=== PATIENT | male | born 1960 | race Caucasian/White ===

== ENCOUNTER 2016-10-11 23:15 | Emergency (ER) | payer SELFPAY ==
[~2016-10-11] VITALS: Ht 177.8 cm; Wt 67.7 kg
[2016-10-11 23:20] VITALS: BP 154/86
[2016-10-11] MEDS ORDERED: SULFAMETH./TRIMETHOPRIM DS 800MG/160MG TABLET ONE (23:40)
[2016-10-11] MEDS ORDERED: LIDOCAINE 1%, 20ML ONE (23:40)
[2016-10-12] MEDS ORDERED: SULFAMETH./TRIMETHOPRIM DS 800MG/160MG TABLET PO ONE
[2016-10-12] MEDS ORDERED: LIDOCAINE 1%, 10ML INFIL ONE
== END 2016-10-12 00:19 | disposition home or self-care (01) ==
LOC: ED 23:59
DX: L03.113 Cellulitis of right upper limb (principal); L02.413 Cutaneous abscess of right upper limb
CPT/HCPCS: 10060

== ENCOUNTER 2020-10-11 11:52 | Emergency (ER) | payer OTHER ==
[~2020-10-11] VITALS: Ht 177.8 cm; Wt 71.4 kg
--- NOTE | 2020-10-11 14:37 | NUR ---
"I HAVE A HERNIA ON MY R GROIN FOR THE PAST TWO YEARS, BUT ITS GOTTEN SUPER PAINFUL IN THE LAST WEEK." Able to reduce manually. no bowel or bladder difficulties
--- NOTE | 2020-10-11 14:44 | NUR ---
bedside report from braden rn, pt care transferred at this time. pt in nad. Patient is resting comfortably in bed. Bed in lowest, rails engaged, call light on lap. Awaiting orders. WCTM.
--- NOTE | 2020-10-11 14:47 | NUR ---
report to elsie diaz
[2020-10-11 16:01] VITALS: BP 163/98
--- NOTE | 2020-10-11 16:02 | NUR ---
Patient given discharge instructions and they have confirmed that they understand the instructions. Patient ambulatory with steady gait. NAD, all questions answered appropriately, denies additional needs at this time. No personal belongings left in room after discharge.
== END 2020-10-11 16:03 | disposition home or self-care (01) ==
LOC: ED 15:45
DX: K40.90 Unilateral inguinal hernia, without obstruction or gangrene, not specified as recurrent (principal)
CPT/HCPCS: 99281

== ENCOUNTER 2020-11-09 06:09 | Day surgery (SDC) | payer OTHER ==
[~2020-11-09] VITALS: Ht 177.8 cm; Wt 70.0 kg
[2020-11-09] MEDS ORDERED: BUPIVACAINE/PF 0.5% ONE (07:05)
[2020-11-09] MEDS ORDERED: EPINEPHRINE 1 MG/ML, 1ML ONE (07:05)
[2020-11-09 07:38] VITALS: BP 154/92
[2020-11-09 07:52] VITALS: BP 154/92
[2020-11-09] MEDS ORDERED: LACTATED RINGERS 1,000 ML IV SCH (08:00)
[2020-11-09] MEDS ORDERED: CHLORHEXIDINE 15 ML UDC PO ONE (08:00)
[2020-11-09] MEDS ORDERED: FENTANYL PF 250 MCG/5ML ONE (09:44)
[2020-11-09] MEDS ORDERED: ONDANSETRON 2MG/ML, 2ML ONE (10:50)
[2020-11-09] MEDS ORDERED: ROCURONIUM 10MG/ML,5ML ONE (10:50)
[2020-11-09] MEDS ORDERED: CEFAZOLIN 1,000 MG ONE (10:50)
[2020-11-09] MEDS ORDERED: PROPOFOL 10 MG/ML, 20ML ONE (10:50)
[2020-11-09] MEDS ORDERED: SUCCINYLCHOLINE 20 MG/ML, 10ML ONE (10:50)
[2020-11-09] MEDS ORDERED: GLYCOPYRROLATE 0.2MG/1ML, 5ML ONE (10:50)
[2020-11-09] MEDS ORDERED: NEOSTIGMINE 1 MG/ML, 10ML ONE (10:50)
[2020-11-09] MEDS ORDERED: DEXAMETHASONE 4 MG/ML, 1ML ONE (10:50)
[2020-11-09] MEDS ORDERED: IBUP-1223 PO (11:03)
[2020-11-09] MEDS ORDERED: ACET-1600 PO (11:03)
[2020-11-09] MEDS ORDERED: OXYC5TAB2 PO (11:03)
[2020-11-09] MEDS ORDERED: METHOCARBAMOL 1000MG/10 ML IV STA (11:04)
[2020-11-09] MEDS ORDERED: hydrALAzine 20 MG/ML, 1ML ONE (11:13)
[2020-11-09] MEDS ORDERED: PROMETHAZINE 25 MG/ML, 1ML IVPush PRN (11:30)
[2020-11-09] MEDS ORDERED: OXYcodone 5 MG/5 ML ORAL.SOL UDC PO PRN (11:30)
[2020-11-09] MEDS ORDERED: hydrALAzine 20 MG/ML, 1ML IV PRN (11:30)
[2020-11-09] MEDS ORDERED: ONDANSETRON 2MG/ML, 2ML IVPush PRN (11:30)
[2020-11-09] MEDS ORDERED: HYDROmorphone 1 MG/ML, 1ML INJ IVPush PRN (11:30)
[2020-11-09] MEDS ORDERED: FENTANYL PF 100 MCG/2ML IV PRN (11:30)
[2020-11-09] MEDS ORDERED: MEPERIDINE/PF 25MG/0.5ML IVPush PRN (11:30)
[2020-11-09] MEDS ORDERED: ACETAMINOPHEN 325 MG TABLET PO PRN (11:30)
[2020-11-09] MEDS ORDERED: LABETALOL 5MG/ML, 20ML IV PRN (11:30)
[2020-11-09] MEDS ORDERED: ACETAMINOPHEN 650 MG/20.3 ML UDC ONE (11:52)
[2020-11-09] MEDS ORDERED: OXYcodone 5 MG/5 ML ORAL.SOL UDC ONE ×2 (11:52→11:54)
[2020-11-09] MEDS ORDERED: FENTANYL PF 100 MCG/2ML ONE (11:54)
[2020-11-09] MEDS ORDERED: METHOCARBAMOL 1,000 MG in DEXTROSE 5% 100 ML IV STA (12:49)
== END 2020-11-09 14:35 | disposition home or self-care (01) ==
LOC: OUT 06:09
PROVIDERS: ATTEND Surgery
DX: K40.90 Unilateral inguinal hernia, without obstruction or gangrene, not specified as recurrent (principal); F17.210 Nicotine dependence, cigarettes, uncomplicated; Z79.899 Other long term (current) drug therapy
CPT/HCPCS: 49650; 87635; 93005; C1781; J0171; J0330; J0360; J0690; J1100; J2405; J2704; J2710; J2800; J3010; J7120; S2900